=== PATIENT | female | born 1935 | race Hispanic/Latino ===

== ENCOUNTER 2017-02-08 16:49 | Observation (INO) | payer MEDICARE, BC ==
[2017-02-08 16:53] VITALS: BMI 30.8
[2017-02-08 17:03] VITALS: TEMP 98.4; O2SAT 95
[2017-02-08] MEDS ORDERED: Levalbuterol 0.63 MG/3 ML Inhal Soln UD IH STA (17:30)
[2017-02-08] MEDS ORDERED: guaiFENesin 200 mg/10 ml Syrup UD PO STA (17:31)
--- NOTE | 2017-02-08 17:34 | ED PDOC ---
Arrival/HPI - General Chief Complaint: Palpitations Time Seen by Provider: 02/08/17 16:50 Historian: Patient - History of Present Illness Narrative History of Present Illness (Text): 02/08/17 17:22 A 81 year old female presents to the emergency department complaining of intermittent chest "flutters" and feeling her pulse at the base of her neck since yesterday. Patient notes since the onset of the symptoms she has been monitoring her blood pressure and earlier today it was 167/102 so she became nervous and shaky. Patient states she has prescription of Xanax at home so she took a half a tablet. Patient reports currently she just feel a irregular pulse in her neck but no chest discomfort/flutter. Patient notes a non productive cough during onset of symptoms but denies any fever, chills, chest pain, abdominal pain, nausea, vomiting or any other complaints at this time. Patient mentions she has had similar symptoms in the past. PMD: Dr. Senior Gas Mask Assembler: Dr. 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) - Hematological/Oncological Hx Blood Disorders: No - Integumentary Hx Dermatological Disorder: No - Musculoskeletal/Rheumatological Hx Musculoskeletal Disorders: Yes Hx Back Pain: Yes Hx Falls: Yes - Gastrointestinal Hx Gastrointestinal Disorders: Yes (DIVERTICULOSIS,RECTAL BLEED, H PYLORI, CONSTIPATION,) Hx Diverticulitis: Yes Hx Gastroesophageal Reflux: Yes - Genitourinary/Gynecological Hx Genitourinary Disorders: No - Psychiatric Hx Psychophysiologic Disorder: No (SMOKED CIGARETTE H/O ,DRINKS OCCASIONALLY) Hx Emotional Abuse: No Hx Physical Abuse: No Hx Substance Use: No - Past Surgical History Past Surgical History: Non-Contributing - Surgical History Other/Comment: cholectomy. partial left kidney removal - Anesthesia Hx Anesthesia: Yes Hx Anesthesia Reactions: No Hx Malignant Hyperthermia: No - Suicidal Assessment Feels Threatened In Home Enviroment: No Family/Social History - Physician Review Nursing Documentation Reviewed: Yes Family/Social History: Unknown Family HX Smoking Status: Former Smoker Hx Alcohol Use: Yes (OCCASIONALLY) Hx Substance Use: No Hx Substance Use Treatment: No Allergies/Home Meds Allergies/Adverse Reactions: Allergies ampicillin Allergy (Verified 02/08/17 16:54) RASH atorvastatin calcium [From Lipitor] Allergy (Verified 02/08/17 16:54) RASH Home Medications: Home Meds Medication Instructions Recorded Confirmed Losartan/Hydrochlorothiazide 1 tab PO DAILY 01/12/16 02/08/17 [Hyzaar 100-25 Tablet] amLODIPine [Norvasc] 10 mg PO DAILY 01/12/16 02/08/17 Cholecalciferol (Vitamin D3) 1 cap PO QWK 02/08/17 02/08/17 [Vitamin D3] Docusate [Colace] 1 cap PO TID 02/08/17 02/08/17 Metoprolol Succinate [Toprol XL] 25 mg PO DAILY 02/08/17 02/08/17 Review of Systems - Physician Review All systems were reviewed & negative as marked: Yes - Review of Systems Constitutional: absent: Fevers Eyes: absent: Vision Changes ENT: Normal Respiratory: Cough. absent: SOB Cardiovascular: Palpitations. absent: Chest Pain, Syncope Gastrointestinal: absent: Abdominal Pain, Nausea, Vomiting Neurological: absent: Headache, Dizziness, Focal Weakness Endocrine: absent: Diaphoresis Physical Exam Vital Signs Reviewed: Yes Vital Signs Temp Pulse Resp BP Pulse Ox 02/08/17 19:16 79 14 144/74 95 02/08/17 16:49 98.4 F 93 H 20 166/77 H 95 Temperature: Afebrile Blood Pressure: Hypertensive Pulse: Regular Respiratory Rate: Normal Appearance: Positive for: Well-Appearing, Non-Toxic, Comfortable Pain Distress: None Mental Status: Positive for: Alert and Oriented X 3 - Systems Exam Head: Present: Atraumatic, Normocephalic Pupils: Present: PERRL Conjunctiva: Present: Normal Mouth: Present: Moist Mucous Membranes Pharnyx: Present: Normal. No: ERYTHEMA, EXUDATE Neck: Present: Normal Range of Motion Respiratory/Chest: Present: Good Air Exchange, Wheezes (very mild wheezing). No : Respiratory Distress, Accessory Muscle Use Cardiovascular: Present: Regular Rate and Rhythm, Normal S1, S2. No: Murmurs Abdomen: Present: Normal Bowel Sounds. No: Tenderness, Distention, Peritoneal Signs Back: Present: Normal Inspection Upper Extremity: Present: Normal Inspection. No: Cyanosis, Edema Lower Extremity: Present: Normal Inspection. No: Edema Neurological: Present: GCS=15, CN II-XII Intact, Speech Normal Skin: Present: Warm, Dry, Normal Color. No: Rashes Psychiatric: Present: Alert, Oriented x 3, Normal Insight, Normal Concentration Medical Decision Making ED Course and Treatment: 02/08/17 17:22 Impression: A 81 year old female with chest palpitations and sensation of irregular heart rate. Differential Diagnosis include but are not limited to: anxiety vs. ACS less likely Plan: -- Chest X-ray -- Labs -- Xanax, Robitussin and Xopenex -- Reassess and disposition Prior Visits: Notes and results from previous visits were reviewed. The patient last presented to the emergency department on 01/12/16 for evaluation of intermittent vague chest and neck discomfort/palpitations. 02/08/17 17:30 EKG: NSR @ 88; borderline LVH by voltage; normal intevals; normal axis; no ST/ T changes - Lab Interpretations I have reviewed the lab results: Yes - Medication Orders Current Medication Orders: Discontinued Medications Alprazolam (Xanax) 0.125 mg PO STAT STA PRN Reason: Protocol Stop: 02/08/17 17:32 Last Admin: 02/08/17 17:46 Dose: 0.125 mg Guaifenesin (Robitussin) 400 mg PO ONCE STA Stop: 02/08/17 17:32 Last Admin: 02/08/17 17:46 Dose: 400 mg Levalbuterol HCl (Xopenex) 0.63 mg IH ONCE STA Stop: 02/08/17 17:31 Last Admin: 02/08/17 17:46 Dose: 0.63 mg ED OBSERVATION Discharge: Yes Date of observation admission: 02/08/17 Time of observation admission: 17:22 - Observation admission statement Patient is being placed in observation because:: chest palpitations - Goals of Observation Goals of observation are:: symptomatic control - Progress Note Progress Note: 02/08/17 19:00 Patient reports no fluttering sensation and is asymptomatic. Repeat lung and heart exams are normal. 02/08/17 21:30 Second set of cardiac enzymes is negative and patient continues to be asymptomatic. As the patient never had any chest pain or shortness of breathing or dizziness with normal ekg and labs, there is no indication for admission. She has been observed in the emergency department and continues to be asymptomatic with negative CE x 2. Ok for d/c to follow up her pmd and product marketing executive, Dr. Graham. - Scribe Statement The provider has reviewed the documentation as recorded by the Anabellibe Sunny Dwyer Provider Scribe Attestation: All medical record entries made by the Scribe were at my direction and personally dictated by me. I have reviewed the chart and agree that the record accurately reflects my personal performance of the history, physical exam, medical decision making, and the department course for this patient. I have also personally directed, reviewed, and agree with the discharge instructions and disposition. Disposition/Present on Arrival - Present on Arrival Any Indicators Present on Arrival: No History of DVT/PE: No History of Uncontrolled Diabetes: No Urinary Catheter: No History of Decub. Ulcer: No History Surgical Site Infection Following: None - Disposition Have Diagnosis and Disposition been Completed?: Yes Diagnosis: Palpitations Disposition: HOME/ ROUTINE Disposition Time: 17:22 Patient Plan: Discharge Patient Problems: Current Active Problems Problem Status Onset Palpitations Acute Condition: GOOD
[2017-02-08 17:49] LABS: ADD MANUAL DIFF? NO
[2017-02-08 17:59] LABS: BASO # 0.05 K/mm3 (0.0-2.0); BASO % 0.6 % (0.0-3.0); EOS # 0.1 (0.0-0.7); EOS % 0.7 % (1.5-5.0); GRAN # 6.14 (1.4-6.5); GRAN % 70.9 % (50.0-68.0); HEMATOCRIT 37.5 % (36.0-48.0); LYMPH # 1.8 (1.2-3.4); LYMPH % 20.8 % (22.0-35.0); MEAN CELL VOLUME 87.4 fL (80.0-105.0); MEAN CORPUSCULAR HEMOGLOBIN 28.7 pg (25.0-35.0); MEAN CORPUSCULAR HGB CONC 32.8 g/dl (31.0-37.0); MEAN PLATELET VOLUME 9.1 fl (7.0-11.0); MONO # 0.6 (0.1-0.6); PLATELET COUNT 316 10^3/uL (120.0-450.0); RED CELL DISTRIBUTION WIDTH 15.9 % (11.5-14.5); WHITE BLOOD COUNT 8.7 10^3/ul (4.5-11.0)
[2017-02-08 18:38] LABS: ALB/GLOB RATIO 1.1 (1.1-1.8); ALKALINE PHOSPHATASE 82 U/L (38-133); ALT/SGPT 34 U/L (7-56); AST/SGOT 22 U/L (15-39); BILIRUBIN,TOTAL 0.8 mg/dL (0.2-1.3); BLOOD UREA NITROGEN 25 mg/dL (7-21); CALCIUM 9.3 mg/dL (8.4-10.5); CARBON DIOXIDE 23 mmol/L (21-33); CHLORIDE 105 mmol/L (98-107); GFR AFRICAN-AMERICAN > 60; GLUCOSE,RANDOM 103 mg/dL (70-110); LIPASE 110 U/L (23-300); MAGNESIUM 2.4 mg/dL (1.7-2.2); POTASSIUM 4.4 mmol/L (3.6-5.0); SODIUM 137 mmol/L (132-148); TOTAL PROTEIN 7.7 g/dL (5.8-8.3)
[2017-02-08 18:50] LABS: TROPONIN I < 0.01 ng/mL
[2017-02-08 19:17] VITALS: BP 144/74; PULSE 79; RESP 14
[2017-02-08 21:24] LABS: TROPONIN I < 0.01 ng/mL
--- NOTE | 2017-02-09 10:30 | RAD ---
HISTORY: fluttering chest sensation COMPARISON: 01/15/2017 FINDINGS: LUNGS: No active pulmonary disease. PLEURA: No significant pleural effusion identified, no pneumothorax apparent. CARDIOVASCULAR: Normal. OSSEOUS STRUCTURES: No significant abnormalities. VISUALIZED UPPER ABDOMEN: Normal. OTHER FINDINGS: None. IMPRESSION: No active disease.
--- NOTE | 2017-02-09 10:52 | CARD ---
APPROVED REPORT EKG Measurement Heart [id number] TX [id number] <Conclusion> Normal sinus rhythm Moderate voltage criteria for LVH, may be normal variant Leftward axis NSSTW changes
== END 2017-02-08 21:35 | disposition home or self-care (01) ==
LOC: ED 16:49 → EROBSV 17:22
PROVIDERS: ADMIT Emergency Medicine; ATTEND Emergency Medicine
DX: R00.2 Palpitations (principal)
CPT/HCPCS: 36415; 71010; 80053; 82550; 83615; 83690; 83735; 83880; 84484; 85025; 93005; 99284; G0378

== ENCOUNTER 2017-09-13 09:10 | Observation (INO) | payer MEDICARE, BC ==
[2017-09-13 09:18] VITALS: BMI 30.2
[2017-09-13 09:54] LABS: BASO # 0.04 K/mm3 (0.0-2.0); BASO % 0.5 % (0.0-3.0); EOS # 0.1 (0.0-0.7); EOS % 0.9 % (1.5-5.0); GRAN # 5.5 (1.4-6.5); GRAN % 67.8 % (50.0-68.0); LYMPH # 1.7 (1.2-3.4); LYMPH % 21.3 % (22.0-35.0); MEAN CELL VOLUME 88.6 fl (80.0-105.0); MEAN CORPUSCULAR HEMOGLOBIN 28.5 pg (25.0-35.0); MEAN CORPUSCULAR HGB CONC 32.1 g/dl (31.0-37.0); MEAN PLATELET VOLUME 9.4 fl (7.0-11.0); MONO # 0.8 (0.1-0.6); MONO % 9.5 % (1.0-6.0); RBC 4.92 10^6/uL (3.5-6.1); RED CELL DISTRIBUTION WIDTH 15.6 % (11.5-14.5); WHITE BLOOD COUNT 8.1 10^3/ul (4.5-11.0)
--- NOTE | 2017-09-13 09:58 | RAD ---
HISTORY: rectal bleeding COMPARISON: 02/08/2017 FINDINGS: LUNGS: No active pulmonary disease. PLEURA: No significant pleural effusion identified, no pneumothorax apparent. CARDIOVASCULAR: Normal. OSSEOUS STRUCTURES: No significant abnormalities. VISUALIZED UPPER ABDOMEN: Normal. OTHER FINDINGS: None. IMPRESSION: No active disease.
[2017-09-13 10:02] LABS: PROTHROMBIN TIME 11.5 SECONDS (9.4-12.5)
[2017-09-13 10:06] LABS: ALBUMIN 4.5 g/dL (3.0-4.8); ALT/SGPT 45 U/L (7-56); AST/SGOT 32 U/L (14-36); BLOOD UREA NITROGEN 32 mg/dL (7-21); CALCIUM 9.7 mg/dL (8.4-10.5); GFR AFRICAN-AMERICAN > 60; GFR NON-AFRICAN AMERICAN 53
--- NOTE | 2017-09-13 10:11 | ED PDOC ---
Arrival/HPI - General Chief Complaint: GI Problem Time Seen by Provider: 09/13/17 09:25 Historian: Patient - History of Present Illness Narrative History of Present Illness (Text): 09/13/17 10:07 82-year-old female with a history of hypertension presents today with concerns for dark stools since last night. Patient states she had 3 episodes of dark soft stools since last night. Patient denies abdominal pain. Denies chest pain or shortness of breath. pt states she has hx of diverticulitis/diverticulosis in the past. pt denies dizziness or weakness. denies n/v/d. pt states she takes colace 3 times daily. denies fever/chills. denies cp or sob. no other complaints. 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) - Renal Hx Renal Disorder: No - Endocrine/Metabolic Hx Endocrine Disorders: No - Hematological/Oncological Hx Blood Disorders: No - Integumentary Hx Dermatological Disorder: No - Musculoskeletal/Rheumatological Hx Musculoskeletal Disorders: Yes Hx Back Pain: Yes Hx Falls: Yes - Gastrointestinal Hx Gastrointestinal Disorders: Yes (DIVERTICULOSIS,RECTAL BLEED, H PYLORI, CONSTIPATION,) Hx Diverticulitis: Yes Hx Gastroesophageal Reflux: Yes - Genitourinary/Gynecological Hx Genitourinary Disorders: No - Psychiatric Hx Psychophysiologic Disorder: No (SMOKED CIGARETTE H/O ,DRINKS OCCASIONALLY) Hx Emotional Abuse: No Hx Physical Abuse: No Hx Substance Use: No - Past Surgical History Past Surgical History: Non-Contributing - Surgical History Other/Comment: cholectomy. partial left kidney removal - Anesthesia Hx Anesthesia: Yes Hx Anesthesia Reactions: No Hx Malignant Hyperthermia: No - Suicidal Assessment Feels Threatened In Home Enviroment: No Family/Social History - Physician Review Nursing Documentation Reviewed: Yes Family/Social History: Unknown Family HX Smoking Status: Former Smoker Hx Alcohol Use: Yes (OCCASIONALLY) Hx Substance Use: No Hx Substance Use Treatment: No Allergies/Home Meds Allergies/Adverse Reactions: Allergies ampicillin Allergy (Verified 09/13/17 09:18) RASH atorvastatin calcium [From Lipitor] Allergy (Verified 09/13/17 09:18) RASH Home Medications: Home Meds Medication Instructions Recorded Confirmed Losartan/Hydrochlorothiazide 1 tab PO DAILY 01/12/16 09/13/17 [Hyzaar 100-25 Tablet] amLODIPine [Norvasc] 10 mg PO DAILY 01/12/16 09/13/17 Cholecalciferol (Vitamin D3) 1 cap PO QWK 02/08/17 09/13/17 [Vitamin D3] Docusate [Colace] 1 cap PO TID 02/08/17 09/13/17 Metoprolol Succinate [Toprol XL] 50 mg PO DAILY 02/08/17 09/13/17 cloNIDine [Catapres] 0.1 mg PO DAILY 09/13/17 09/13/17 Review of Systems - Review of Systems Constitutional: absent: Fatigue, Fevers Respiratory: absent: SOB, Cough Cardiovascular: absent: Chest Pain, Palpitations Gastrointestinal: Hematochezia. absent: Abdominal Pain, Constipation, Diarrhea , Nausea, Vomiting, Hematemesis Genitourinary Female: absent: Dysuria, Frequency, Hematuria Musculoskeletal: absent: Arthralgias, Back Pain, Neck Pain Skin: absent: Rash, Pruritis Neurological: absent: Headache, Dizziness Psychiatric: absent: Anxiety, Depression, Suicidal Ideation Physical Exam Vital Signs Reviewed: Yes Vital Signs Temp Pulse Resp BP Pulse Ox 09/13/17 14:03 97.0 F L 87 16 135/59 L 97 09/13/17 09:13 97.9 F 95 H 18 191/81 H 95 Temperature: Afebrile Blood Pressure: Hypertensive Pulse: Regular Respiratory Rate: Normal Appearance: Positive for: Well-Appearing, Non-Toxic, Comfortable Pain Distress: None Mental Status: Positive for: Alert and Oriented X 3 - Systems Exam Head: Present: Atraumatic Mouth: Present: Moist Mucous Membranes Neck: Present: Normal Range of Motion Respiratory/Chest: Present: Clear to Auscultation, Good Air Exchange. No: Respiratory Distress, Accessory Muscle Use Cardiovascular: Present: Regular Rate and Rhythm, Normal S1, S2. No: Murmurs Abdomen: Present: Normal Bowel Sounds. No: Tenderness, Distention, Peritoneal Signs, Rebound, Guarding Rectal: Present: Occult Blood, Melena, Normal Rectal Tone. No: Rectal Tenderness, Gross Blood, Hemorrhoids, Fissures Back: Present: Normal Inspection. No: CVA Tenderness Upper Extremity: Present: Normal ROM Lower Extremity: Present: Normal ROM. No: Edema Neurological: Present: GCS=15, Speech Normal Skin: Present: Warm, Dry, Normal Color. No: Rashes Psychiatric: Present: Alert, Oriented x 3 Medical Decision Making ED Course and Treatment: 09/13/17 10:12 Patient is nontoxic well appearing with stable vital signs presenting with dark stools since yesterday. no weakness or fatigue. pt with elevated bp; states she didnt take her medication thismorning; she is requesting to take her medications now. CBC wnl CMP bun; 32 cr. 1.0 glucose; 120 PT wnl INR wnl PTT wnl Urinalysis: + leukocytes, + bacteria. CAT scan: FINDINGS: LOWER THORAX: Unremarkable. LIVER: Small hypodense lesion in the inferior posterior right lobe unchanged, probable cyst. GALLBLADDER AND BILE DUCTS: Unremarkable. PANCREAS: Unremarkable. No gross lesion or ductal dilatation. SPLEEN: Unremarkable. 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 KIDNEYS AND URETERS: Unremarkable. No hydronephrosis. No solid mass. VASCULATURE: Unremarkable. No aortic aneurysm. BOWEL: Unremarkable. No obstruction. No gross mural thickening. A suture line is seen in the sigmoid colon. APPENDIX: Unremarkable. Normal appendix. PERITONEUM: Unremarkable. No free fluid. No free air. LYMPH NODES: Unremarkable. No enlarged lymph nodes. BLADDER: Unremarkable. REPRODUCTIVE: Unremarkable. BONES: There is a compression fracture of L2. Age uncertain. This was not present on the previous study OTHER FINDINGS: None. IMPRESSION: No acute intra-abdominal findings Patient reassessment: pt resting comfortably in er; vitals stable. ua with + leukocytes; will start patient on cipro. Discussed all results with patient in depth case discussed with dr. cornejo covering for dr. marshall; will admit observational status to med/surg for GI evaluation and monitor cbc. all aspects of this case were discussed the attending of record. Impression: rectal bleeding, L2 compression fracture [facility] Lab Interpretations Lab Results: 09/13/17 09:40 09/13/17 09:40 Lab Results 09/13/17 11:03: Urine Color Yellow, Urine Appearance Clear, Urine pH 6.0, Ur Specific [place] 1.015, Urine Protein Negative, Urine Glucose (UA) Negative, Urine Ketones Negative, Urine Blood Negative, Urine Nitrate Negative, Urine Bilirubin Negative, Urine Urobilinogen 0.2, Ur Leukocyte Esterase Small H, Urine RBC 0 - 2, Urine WBC 2 - 5, Ur Epithelial Cells 0 - 2, Urine Bacteria Small 09/13/17 09:40: WBC 8.1, RBC 4.92, Hgb 14.0, Hct 43.6, MCV 88.6, MCH 28.5, MCHC 32.1, RDW 15.6 H, Plt Count 322, MPV 9.4, Gran % 67.8, Lymph % (Auto) 21.3 L, [place] % (Auto) 9.5 H, Eos % (Auto) 0.9 L, Baso % (Auto) 0.5, Gran # 5.50, Lymph # 1.7, [place] # 0.8 H, Eos # 0.1, Baso # 0.04 09/13/17 09:40: Blood Type A NEGATIVE, Antibody Screen Negative, BBK History Checked Patient has bt 09/13/17 09:40: Sodium 139, Potassium 3.7, Chloride 104, Carbon Dioxide 23, Anion Gap 16, BUN 32 H, Creatinine 1.0, Est GFR ( Amer) > 60, Est GFR ( Non-Af Amer) 53, Random Glucose 120 H, Calcium 9.7, Total Bilirubin 0.7, AST 32 , ALT 45, Alkaline Phosphatase 92, Lactate Dehydrogenase 487, Total Creatine Kinase 48, Troponin I < 0.01, Total Protein 8.5 H, Albumin 4.5, Globulin 4.1, Albumin/Globulin Ratio 1.1 09/13/17 09:40: PT 11.5, INR 1.00, APTT 34.0 - RAD Interpretation Radiology Orders: 09/13/17 09:27 CHEST PORTABLE [RAD] Stat 09/13/17 11:02 ABDOMEN & PELVIS [ABD & PELVIS PO CONTRAST ONLY] [CT] Stat - Medication Orders Current Medication Orders: Ciprofloxacin (Cipro 400mg/200ml Dsw) 400 mg in 200 mls @ 133.3 mls/hr IVPB STAT STA PRN Reason: Protocol Stop: 09/13/17 17:43 Last Admin: 09/13/17 16:34 Dose: 133.3 mls/hr eMAR Start Stop Document 09/13/17 16:34 SE (Rec: 09/13/17 16:35 SE [id number]) Intravenous Solution Start Date 09/13/17 Start Time 16:35 Disposition/Present on Arrival - Present on Arrival Any Indicators Present on Arrival: No History of DVT/PE: No History of Uncontrolled Diabetes: No Urinary Catheter: No History of Decub. Ulcer: No History Surgical Site Infection Following: None - Disposition Have Diagnosis and Disposition been Completed?: Yes Diagnosis: UTI (lower urinary tract infection), Rectal bleed Disposition: HOSPITALIZED Disposition Time: 16:16 Patient Plan: Observation Patient Problems: Current Active Problems Problem Status Onset UTI (lower urinary tract infection) Acute Rectal bleed Acute Condition: FAIR Forms: [facility] (Lao)
[2017-09-13 10:15] LABS: ALB/GLOB RATIO 1.1 (1.1-1.8)
[2017-09-13 10:18] LABS: TROPONIN I < 0.01 ng/mL
[2017-09-13 11:07] LABS: URINE BILIRUBIN NEGATIVE (NEGATIVE); URINE BLOOD NEGATIVE (NEGATIVE); URINE GLUCOSE (UA) NEGATIVE (NEGATIVE); URINE LEUKOCYTE ESTERASE SMALL Leu/uL (NEGATIVE); URINE NITRATE NEGATIVE (NEGATIVE); URINE PROTEIN NEGATIVE mg/dL (<30 mg/dL); URINE UROBILINOGEN 0.2 E.U./dL (<1 E.U./dL)
[2017-09-13 11:08] LABS: URINE APPEARANCE CLEAR (CLEAR); URINE COLOR YELLOW (YELLOW)
[2017-09-13 11:15] LABS: URINE BACTERIA SMALL (NEG); URINE EPITHELIAL CELLS 0 - 2 /hpf (0-5); URINE RBC 0 - 2 /hpf (0-2)
[2017-09-13] MEDS ORDERED: Iohexol 240 (50 ml) ONE (11:20)
--- NOTE | 2017-09-13 14:10 | CT ---
PROCEDURE: CT Abdomen and Pelvis without intravenous contrast HISTORY: rectal bleeding/ COMPARISON: 08/09/2014 CT TECHNIQUE: Without contrast.. Contrast Dose: Radiation dose: Total exam DLP = 849 mGy-cm. This CT exam was performed using one or more of the following dose reduction techniques: Automated exposure control, adjustment of the mA and/or kV according to patient size, and/or use of iterative reconstruction technique. FINDINGS: LOWER THORAX: Unremarkable. LIVER: Small hypodense lesion in the inferior posterior right lobe unchanged, probable cyst. GALLBLADDER AND BILE DUCTS: Unremarkable. PANCREAS: Unremarkable. No gross lesion or ductal dilatation. SPLEEN: Unremarkable. 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 KIDNEYS AND URETERS: Unremarkable. No hydronephrosis. No solid mass. VASCULATURE: Unremarkable. No aortic aneurysm. BOWEL: Unremarkable. No obstruction. No gross mural thickening. A suture line is seen in the sigmoid colon. APPENDIX: Unremarkable. Normal appendix. PERITONEUM: Unremarkable. No free fluid. No free air. LYMPH NODES: Unremarkable. No enlarged lymph nodes. BLADDER: Unremarkable. REPRODUCTIVE: Unremarkable. BONES: There is a compression fracture of L2. Age uncertain. This was not present on the previous study OTHER FINDINGS: None. IMPRESSION: No acute intra-abdominal findings
[2017-09-13] MEDS ORDERED: Ciprofloxacin 400mg/200ml D5W 400 MG/200 ML BAG IVPB STA (16:13)
--- NOTE | 2017-09-13 20:42 | CARD ---
APPROVED REPORT EKG Measurement Heart [id number] CO 148P16 [id number] <Conclusion> Normal sinus rhythm Left ventricular hypertrophy with repolarization abnormality Abnormal ECG
[2017-09-14] MEDS ORDERED: Sodium Chloride 0.9% 1,000 ML IV STA (00:01)
[2017-09-14 08:04] LABS: IRON 50 ug/dL (45-180)
[2017-09-14 08:09] LABS: BASO # 0.05 K/mm3 (0.0-2.0); BASO % 0.7 % (0.0-3.0); EOS # 0.2 (0.0-0.7); EOS % 2.3 % (1.5-5.0); GRAN # 4.4 (1.4-6.5); GRAN % 60.2 % (50.0-68.0); HEMOGLOBIN 12.7 g/dL (12.0-16.0); LYMPH % 26.8 % (22.0-35.0); MEAN CORPUSCULAR HEMOGLOBIN 28.6 pg (25.0-35.0); MEAN CORPUSCULAR HGB CONC 32.2 g/dl (31.0-37.0); MEAN PLATELET VOLUME 9.6 fl (7.0-11.0); MONO # 0.7 (0.1-0.6); RBC 4.44 10^6/uL (3.5-6.1); RED CELL DISTRIBUTION WIDTH 15.3 % (11.5-14.5); WHITE BLOOD COUNT 7.3 10^3/ul (4.5-11.0)
[2017-09-14 08:14] LABS: % IRON SATURATION 17 % (20-55); TOTAL IRON BINDING CAPACITY 298 ug/dL (265-497)
[2017-09-14 08:17] LABS: BLOOD UREA NITROGEN 21 mg/dL (7-21); GFR AFRICAN-AMERICAN > 60; GFR NON-AFRICAN AMERICAN > 60
--- NOTE | 2017-09-14 08:56 | HP ---
HISTORY OF PRESENT ILLNESS: Ms. Merrill is an 82-year-old female presented to the ED with three episodes of dark colored stools since last night. Denies any abdominal pain. No shortness of breath. No chest pain. No nausea. No vomiting. CAT scan of the abdomen was unremarkable. Hemoglobin and hematocrit has been stable. PAST MEDICAL HISTORY: Hypertension, chronic back pain, history of rectal bleed, diverticulosis, diverticulitis. PAST SURGICAL HISTORY: Cholecystectomy, left kidney removal. PERSONAL HISTORY: Former smoker. No history of alcohol abuse. FAMILY HISTORY: Noncontributory. SOCIAL HISTORY: Lives at home. ALLERGIES: AMPICILLIN AND ATORVASTATIN. HOME MEDICATIONS: Amlodipine 10 mg daily, Hyzaar 100/25 daily, metoprolol 50 daily, clonidine 0.1 mg daily and Colace one capsule t.i.d. REVIEW OF SYSTEMS: As per HPI. Rest of 12-point review of systems reviewed and negative. PHYSICAL EXAMINATION GENERAL: Comfortable in bed in no acute distress. VITAL SIGNS: Temperature 97.8, heart rate is 91 per minute, respiratory rate 18 per minute, blood pressure 190/81 and pulse oximetry is 95% on room air. HEENT: Normal. NECK: No lymphadenopathy. CHEST: Air entry present equal and bilateral. No added sounds. CARDIOVASCULAR: S1 and S2 normal. No murmur, no gallop. ABDOMEN: Soft and nontender. No hepatosplenomegaly. EXTREMITIES: No edema. CAT scan unremarkable. Compression fracture of L2 . LABORATORY DATA: White count 8.1, hemoglobin 14, hematocrit 43.1 and platelet count 322. Sodium 139, potassium 3.9, BUN 32, creatinine 1 and glucose 130. UA had leukocyte esterase trace. ASSESSMENT: 1. Gastrointestinal bleed. 2. Hypertension. 3. Possible urinary tract infection. PLAN: She will be admitted to the hospital. We will monitor hemoglobin, hematocrit closely. GI consultation Dr. Solano requested. We will continue antihypertensive. Continue clonidine, metoprolol and Hyzaar. Protonix 40 mg IV daily. Liquid diet. IV fluid at 60 mL an hour. Ella Brown MD
[2017-09-14] MEDS: Metoprolol Succinate 50 mg XL Tab PO SCH (10:43)
[2017-09-14 12:41] LABS: FERRITIN 18.9 ng/mL
--- NOTE | 2017-09-14 15:17 | CP.PCM.CON ---
History of Present Illness - History of Present Illness History of Present Illness: This an 82-year-old female with a past medical history of hypertension, diverticulosis/diverticulitis status post colectomy, rheumatoid arthritis came to the emergency room with complaints of dark-colored stool. Patient reports that this started on Thursday night, patient recalls having went out to dinner that night and around 11 PM had a formed bowel movement, initially the stool was brown but later on had another bowel movement and noted black stool. The patient denies nausea, vomiting, or abdominal pain. When she woke up next morning around 6 AM she had another small bowel movement and noted it to be dark stool once again and so came to the emergency room for further evaluation. the patient denies any previous episodes of dark stools or bright red blood per rectum. No complaints of weight loss, loss of appetite, shortness of breath chest pain or dizziness. The patient reports taking Colace daily. She does experience occasional acid reflux and takes Tums when necessary but denies any use of Pepto-Bismol, denies any use of NSAIDs. 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 [facility] jael for full report. The patient's last endoscopy was many years ago and does not recall any acute findings. Her last colonoscopy was 11/2014 found to have diverticulosis, surgical anastomosis on the left colon at 15 cm was noted she had a hyperplastic polyp, and internal hemorrhoids. Past medical history: Diverticulosis/chronic diverticulitis status post colectomy, hypertension, colon polyps, dyslipidemia, osteoarthritis, as rheumatoid arthritis Surgical history: Left partial nephrectomy, partial colectomy Allergies: Ampicillin Family history: Father CHF mother CVA Social history: Former smoker, denies EtOH or drug use Medications: Reviewed as per OCT ROS: Systems reviewed and positive findings see HPI Past Patient History - Infectious Disease Hx of Infectious Diseases: None - Tetanus Immunizations Tetanus Immunization: Unknown - Past Social History Smoking Status: Never Smoked - CARDIAC Hx Cardiac Disorders: Yes Hx Hypertension: Yes - PULMONARY Hx Respiratory Disorders: No - NEUROLOGICAL Hx Neurological Disorder: No - HEENT Hx HEENT Problems: Yes Hx Cataracts: Yes (L-HAVING EYE INJECTIONS) 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) - RENAL Hx Chronic Kidney Disease: No - ENDOCRINE/METABOLIC Hx Endocrine Disorders: No - HEMATOLOGICAL/ONCOLOGICAL Hx Blood Disorders: No - INTEGUMENTARY Hx Dermatological Problems: No - MUSCULOSKELETAL/RHEUMATOLOGICAL Hx Musculoskeletal Disorders: Yes Hx Back Pain: Yes Hx Falls: Yes - GASTROINTESTINAL Hx Gastrointestinal Disorders: Yes (DIVERTICULOSIS,RECTAL BLEED, H PYLORI, CONSTIPATION,) Hx Diverticulitis: Yes Hx Gastroesophageal Reflux: Yes - GENITOURINARY/GYNECOLOGICAL Hx Genitourinary Disorders: No - PSYCHIATRIC Hx Psychophysiologic Disorder: No (SMOKED CIGARETTE H/O ,DRINKS OCCASIONALLY) Hx Emotional Abuse: No Hx Physical Abuse: No - SURGICAL HISTORY Other/Comment: cholectomy. partial left kidney removal - ANESTHESIA Hx Anesthesia: Yes Hx Anesthesia Reactions: No Hx Malignant Hyperthermia: No Meds Allergies/Adverse Reactions: Allergies Allergy/AdvReac Type Severity Reaction Status Date / Time ampicillin Allergy RASH Verified 09/13/17 09:18 atorvastatin calcium Allergy RASH Verified 09/13/17 09:18 [From Lipitor] - Medications Medications: Current Medications Amlodipine Besylate (Norvasc) 10 mg PO DAILY [facility] Last Admin: 09/14/17 10:45 Dose: 10 mg Clonidine HCl (Catapres) 0.1 mg PO DAILY [facility] Last Admin: 09/14/17 10:43 Dose: 0.1 mg Hydrochlorothiazide (Hydrodiuril) 25 mg PO DAILY [facility] Last Admin: 09/14/17 10:43 Dose: 25 mg Sodium Chloride (Sodium Chloride 0.9%) 1,000 mls @ 60 mls/hr IV .[id number] STA Stop: 09/14/17 16:40 Last Admin: 09/14/17 02:09 Dose: 60 mls/hr Losartan Potassium (Cozaar) 100 mg PO DAILY [facility] Last Admin: 09/14/17 10:43 Dose: 100 mg Metoprolol Succinate (Toprol Xl) 50 mg PO DAILY [facility] Last Admin: 09/14/17 10:43 Dose: 50 mg Pantoprazole Sodium (Protonix Inj) 40 mg IVP DAILY [facility] Last Admin: 09/14/17 10:45 Dose: 40 mg Physical Exam - Constitutional Appears: No Acute Distress - Head Exam Head Exam: NORMOCEPHALIC - Eye Exam Eye Exam: Normal appearance. absent: Scleral icterus - ENT Exam ENT Exam: Mucous Membranes Moist - Neck Exam Neck exam: Positive for: Normal Inspection - Respiratory Exam Respiratory Exam: Clear to Auscultation Bilateral, NORMAL BREATHING PATTERN. absent: Respiratory Distress - Cardiovascular Exam Cardiovascular Exam: +S1, +S2 - GI/Abdominal Exam GI & Abdominal Exam: Normal Bowel Sounds, Soft. absent: Guarding, Rebound, Tenderness - Extremities Exam Extremities exam: Positive for: pedal pulses present. Negative for: calf tenderness, pedal edema - Neurological Exam Neurological exam: Alert, Oriented x3 - Skin Skin Exam: Dry, Warm Results - Vital Signs Recent Vital Signs: Last Vital Signs Temp 98.0 F 09/14/17 08:00 Pulse 72 09/14/17 08:00 Resp 20 09/14/17 08:00 BP 178/82 H 09/14/17 10:45 Pulse Ox 95 09/14/17 08:00 - Labs Result Diagrams: 09/14/17 07:20 09/14/17 07:20 Labs: Laboratory Results - last 24 hr 09/14/17 09/14/17 09/14/17 07:20 07:20 07:20 WBC 7.3 RBC 4.44 Hgb 12.7 Hct 39.5 MCV 89.0 MCH 28.6 MCHC 32.2 RDW 15.3 H Plt Count 307 MPV 9.6 Gran % 60.2 Lymph % (Auto) 26.8 [place] % (Auto) 10.0 H Eos % (Auto) 2.3 Baso % (Auto) 0.7 Gran # 4.40 Lymph # 2.0 [place] # 0.7 H Eos # 0.2 Baso # 0.05 Sodium 137 Potassium 4.0 Chloride 105 Carbon Dioxide 25 Anion Gap 12 BUN 21 Creatinine 0.8 Est GFR ( Amer) > 60 Est GFR (Non-Af Amer) > 60 Random Glucose 91 Calcium 9.0 Iron 50 TIBC 298 % Saturation 17 L Ferritin 18.9 Assessment & Plan - Assessment and Plan (Free Text) Assessment: Assessment: GI bleed, rule out angiodysplasia, peptic ulcer disease History of diverticulosis/chronic diverticulitis status post colectomy Hypertension Osteoarthritis History of left partial nephrectomy Plan: Trend H&H Continue PPI clear liquids diet EGD 1/16/18 NPO 12 midnight except meds Thank you for this consult and for allowing us to participate in your patient's care, further recommendations based upon clinical course. Seen and discussed with Dr. Mccain who is covering Dr. Solano.
--- NOTE | 2017-09-14 21:30 | PN ---
DATE: SUBJECTIVE: Patient has no complaints. No chest pain, no shortness of breath. No headaches or dizziness. PHYSICAL EXAMINATION VITAL SIGNS: Temperature is 97.7, pulse is 58, blood pressure is 180/84, respirations 18, O2 saturation is 95%. GENERAL: The patient is lying in bed, flat, comfortable. HEENT: No oral lesion. Anicteric sclerae. Moist mucosa. NECK: No JVD, adenopathy, or thyromegaly. CARDIOVASCULAR: S1 and S2, regular. No murmurs, rubs, or gallops. LUNGS: Clear to auscultation bilaterally. No wheeze, rales, or rhonchi. ABDOMEN: Bowel sounds are positive, soft, nontender and nondistended. EXTREMITIES: No cyanosis, clubbing or edema. ASSESSMENT: 1. Gastrointestinal bleed. 2. Hypertension. PLAN: Patient is currently comfortable. Patient's hemoglobin did decrease from 14 to 12.7. Patient is being followed by gastroenterology. Patient is willing for an endoscopy tomorrow. She will continue her metoprolol. She is on Norvasc for hypertension as well as hydrochlorothiazide. I did speak to the patient's . Toni Anders MD
--- NOTE | 2017-09-15 01:50 | CON ---
DATE: 09/14/2017 LOCATION: The patient is in room 573, bed 2. CHIEF COMPLAINT: Weakness since several days. HISTORY OF PRESENT ILLNESS: This is an 82-year-old female with a history of hypertension and coronary artery disease. She was admitted through the Emergency Room with a lower GI bleed. The patient with a history of nephrolithiasis, arthritis, renal cell carcinoma and diverticulitis with a partial left kidney removal, history of colon polyps removal. She is allergic to ampicillin and has received ceftriaxone in the past with no complications. The patient admitted to [facility] with dark colored stools, but no abdominal pain, no shortness of breath, chest pain or vomiting and the patient denies any nausea or vomiting at this time. PAST MEDICAL HISTORY: Significant for diverticulitis, hypertension, coronary artery disease, nephrolithiasis, arthritis, renal cell cancer, colonic polyps. PAST SURGICAL HISTORY: Significant for partial left kidney removal, colon polyp removal. ALLERGIES: PATIENT IS ALLERGIC TO AMPICILLIN AND LIPITOR, ALTHOUGH SHE HAS TOLERATED CEFTRIAXONE IN THE PAST. MEDICATIONS AT HOME: Noted. PHYSICAL EXAMINATION: GENERAL/VITAL SIGNS: Patient is in bed with a temperature of 98, blood pressure is 130/60, respiratory rate of 19, heart rate of 95. HEENT: Unremarkable. NECK: Supple. LUNGS: Decreased breath sounds. HEART: Normal S1 and S2. ABDOMEN: Soft and nontender. LABORATORY EXAMINATION: Reveals white count of 8, hemoglobin of 14, platelets of 322 and coagulation is noted. Chemistries reveals a BUN of 32, creatinine of 1.0, glucose 120. Urinalysis is unremarkable with 2 to 5 wbc's. Urine cultures, no growth. The patient had a chest x-ray, no active lung disease. CT scan of the abdomen and pelvis was negative. ASSESSMENT AND PLAN: This is an 82 year old with hypertension, diverticulitis, status post colectomy and history of rheumatoid arthritis, dark colored stool with gastrointestinal bleed with negative urinalysis, no evidence of infection with a negative CT scan of the abdomen, negative chest x-ray, negative urinalysis. We will hold off any antibiotics at this time. We will follow with you. Kem Steiner MD [facility] # [id number]
--- NOTE | 2017-09-15 01:57 | CON ---
DATE: ADDENDUM I have personally examined this patient and reviewed all her laboratory results including CT scan of the abdomen. Patient comes into the hospital with melena and suspected GI bleed. She is hemodynamically stable. Her blood count is stable. Agree with Lyly Ta diagnosis and plan. We will plan for an upper endoscopy in the morning. Shlomo Mccain MD
[2017-09-15 07:35] LABS: HEMOGLOBIN 12.5 g/dL (12.0-16.0); MEAN CELL VOLUME 88.9 fl (80.0-105.0); MEAN CORPUSCULAR HEMOGLOBIN 28.3 pg (25.0-35.0); MEAN CORPUSCULAR HGB CONC 31.9 g/dl (31.0-37.0); MEAN PLATELET VOLUME 8.8 fl (7.0-11.0); RBC 4.41 10^6/uL (3.5-6.1); WHITE BLOOD COUNT 6.7 10^3/ul (4.5-11.0)
[2017-09-15] MEDS: Metoprolol Succinate 50 mg XL Tab PO SCH (10:07)
[2017-09-15] MEDS ORDERED: Lidocaine 1% Inj (20ml) ONE (12:18)
[2017-09-15] MEDS ORDERED: Propofol 10 mg/ml Inj (20 ML) ONE (12:18)
[2017-09-15] MEDS ORDERED: Sodium Chloride 0.9% 1,000 ML IV SCH (12:45)
[2017-09-15 12:57] VITALS: TEMP 98.3; O2SAT 98
[2017-09-15 12:58] VITALS: RESP 18
[2017-09-15 13:06] VITALS: BP 140/55; PULSE 62
--- NOTE | 2017-09-16 02:16 | DS ---
HISTORY OF PRESENT ILLNESS: The patient is an 82-year-old female who had come to the hospital with GI bleed. The patient was seen by Dr. Mccain. She is scheduled for endoscopy today. She says she feels well. Her hemoglobin is stable at 12.5 this morning. She otherwise feels well. She has mild iron deficiency. She has no complaints of any headaches or dizziness. PHYSICAL EXAMINATION: VITAL SIGNS: Temperature is 97.7, pulse is 68, blood pressure is 180/84, and respirations are 18. GENERAL: The patient is lying in bed, flat, comfortable. HEENT: No oral lesion. Anicteric sclerae. Moist mucosa. NECK: No JVD, adenopathy, or thyromegaly. CARDIOVASCULAR: S1 and S2, regular. No murmurs, rubs, or gallops. LUNGS: Clear to auscultation bilaterally. No wheeze, rales, or rhonchi. ABDOMEN: Bowel sounds are positive, soft, nontender and nondistended. EXTREMITIES: No cyanosis, clubbing or edema. ASSESSMENT: 1. Anemia secondary to gastrointestinal bleed. 2. Hypertension. PLAN: The patient's hemoglobin is fairly stable. Her hemoglobin did decrease from 14 to 12.5, which is 1.5 g decrease. She is on amlodipine for her hypertension. She is on hydrochlorothiazide. She will also continue her losartan. She is n.p.o. for procedure. Condition is stable. Activity increase as tolerated. The patient's endoscopy did not show any acute abnormality and the patient will most likely be discharged home. Toni Anders MD
--- NOTE | 2017-09-16 08:37 | PN ---
DATE: 09/15/2017 SUBJECTIVE: The patient is in bed, in no acute distress. The patient was seen early this morning in 573, bed 2. No fever and chills. PHYSICAL EXAMINATION VITAL SIGNS: Temperature is 98, blood pressure is 140/50 and respiratory rate of 16. HEENT: Unremarkable. NECK: Supple. LUNGS: Have decreased breath sounds. HEART: Normal S1 and S2. ABDOMEN: Soft and nontender. LABORATORY DATA: Reveals a white count of 6.7, hemoglobin of 12 and platelets of 274. Chemistry reveals a BUN of 21 and creatinine of 0.8. Urinalysis is noted. Microbiology revealed no growth and urine culture and the patient was scheduled for endoscopy today. ASSESSMENT AND PLAN: This is an 82-year-old female seen earlier today in room 573, bed 2. Awake and alert, doing well with history of hypertension, diverticulitis, status post , history of rheumatoid arthritis, dark colored stool and gastrointestinal bleeding, negative urinalysis, no evidence of infection. On CAT scan, negative chest x-ray. No antibiotics indicated. The patient to followup as an outpatient. Kem Steiner MD
== END 2017-09-15 18:18 | disposition home or self-care (01) ==
LOC: ED 09:10 → ERH 16:57 → 5RSO 09-14 02:33
PROVIDERS: ADMIT Internal Medicine Nephrology; ATTEND Internal Medicine Nephrology
DX: K92.2 Gastrointestinal hemorrhage, unspecified (principal); D50.0 Iron deficiency anemia secondary to blood loss (chronic); E27.9 Disorder of adrenal gland, unspecified; E78.5 Hyperlipidemia, unspecified; H35.30 Unspecified macular degeneration; I10 Essential (primary) hypertension; I25.10 Atherosclerotic heart disease of native coronary artery without angina pectoris; K21.9 Gastro-esophageal reflux disease without esophagitis; K57.92 Diverticulitis of intestine, part unspecified, without perforation or abscess without bleeding; K76.89 Other specified diseases of liver; M06.9 Rheumatoid arthritis, unspecified; M19.90 Unspecified osteoarthritis, unspecified site; M48.56XA Collapsed vertebra, not elsewhere classified, lumbar region, initial encounter for fracture; N39.0 Urinary tract infection, site not specified; Z79.899 Other long term (current) drug therapy; Z82.3 Family history of stroke; Z82.49 Family history of ischemic heart disease and other diseases of the circulatory system; Z85.528 Personal history of other malignant neoplasm of kidney; Z86.010 Personal history of colon polyps; Z87.442 Personal history of urinary calculi; Z87.891 Personal history of nicotine dependence; Z88.0 Allergy status to penicillin; Z90.49 Acquired absence of other specified parts of digestive tract; Z90.5 Acquired absence of kidney; Z88.8 Allergy status to other drugs, medicaments and biological substances; K44.9 Diaphragmatic hernia without obstruction or gangrene; K25.9 Gastric ulcer, unspecified as acute or chronic, without hemorrhage or perforation; K26.9 Duodenal ulcer, unspecified as acute or chronic, without hemorrhage or perforation; K31.9 Disease of stomach and duodenum, unspecified
CPT/HCPCS: 36415; 43239; 71045; 74176; 80048; 80053; 81001; 82550; 82728; 83540; 83550; 83615; 84484; 85025; 85027; 85610; 85730; 86850; 86900; 87086; 88305; 88342; 93005; 96374; 96375; 96376; 99285; C9113; G0378; J0744; J2704; J7040; Q9966

== ENCOUNTER 2018-11-20 11:00 | Emergency (ER) | payer MEDICARE, BC ==
[2018-11-20 11:37] VITALS: BMI 26.6
[2018-11-20 11:44] VITALS: RESP 18; TEMP 97.8
--- NOTE | 2018-11-20 12:34 | ED PDOC ---
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 Patient reports she woke up around 4 o clock this morning and saw black stool as she was defecating. Patient mentioned her stool was later brown after defecating later. Patient last presented Aug 2017 with melena. Patient denies any fevers, chills, headache, dizziness, chest pain, shortness of breath, dyspnea on exertion, cough, abdominal pain, nausea, vomiting, diarrhea, back pain, neck pain, or any other complaint. 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) - Renal Hx Renal Disorder: No - Endocrine/Metabolic Hx Endocrine Disorders: No - Hematological/Oncological Hx Blood Transfusions: No Hx Blood Transfusion Reaction: No - Integumentary Hx Dermatological Disorder: No - Musculoskeletal/Rheumatological Hx Musculoskeletal Disorders: Yes Hx Back Pain: Yes Hx Falls: Yes - Gastrointestinal Hx Gastrointestinal Disorders: Yes (DIVERTICULOSIS,RECTAL BLEED, H PYLO RI,CONSTIPATION,) Hx Diverticulitis: Yes Hx Gastroesophageal Reflux: Yes - Genitourinary/Gynecological Hx Genitourinary Disorders: No - Psychiatric Hx Psychophysiologic Disorder: No (SMOKED CIGARETTE H/O ,DRINKS OCCASIONALLY) Hx Emotional Abuse: No Hx Physical Abuse: No Hx Substance Use: No - Past Surgical History Past Surgical History: Non-Contributing - Surgical History Other/Comment: Partial nephrectomy,colectomy - Anesthesia Hx Anesthesia: Yes Hx Anesthesia Reactions: No Hx Malignant Hyperthermia: No - Suicidal Assessment Feels Threatened In Home Enviroment: No Family/Social History - Physician Review Nursing Documentation Reviewed: Yes Family/Social History: No Known Family HX Smoking Status: Never Smoked Hx Alcohol Use: Yes (OCCASIONALLY) Hx Substance Use: No Hx Substance Use Treatment: No Allergies/Home Meds Allergies/Adverse Reactions: Allergies ampicillin Allergy (Verified 11/20/18 12:02) RASH atorvastatin calcium [From Lipitor] Allergy (Verified 11/20/18 12:02) RASH Home Medications: Home Meds Medication Instructions Recorded Confirmed Losartan/Hydrochlorothiazide 1 tab PO DAILY 01/12/16 11/20/18 [Hyzaar 100-25 Tablet] amLODIPine [Norvasc] 10 mg PO DAILY 01/12/16 11/20/18 Cholecalciferol (Vitamin D3) 1 cap PO QWK 02/08/17 11/20/18 [Vitamin D3] Docusate [Colace] 1 cap PO TID 02/08/17 11/20/18 Metoprolol Succinate XL [Toprol XL] 50 mg PO DAILY 02/08/17 11/20/18 cloNIDine [Catapres] 0.1 mg PO TID 09/13/17 11/20/18 Review of Systems - Physician Review All systems were reviewed & negative as marked: Yes - Review of Systems Constitutional: absent: Fatigue, Fevers Eyes: Normal ENT: absent: Sore Throat, Rhinorrhea Respiratory: absent: SOB, Cough Cardiovascular: Normal Gastrointestinal: Stool Changes (black stool). absent: Abdominal Pain Musculoskeletal: Normal Skin: Normal Neurological: absent: Headache, Dizziness Endocrine: Normal Hemo/Lymphatic: Normal Psychiatric: Normal Physical Exam Vital Signs Reviewed: Yes Vital Signs Temp Pulse Resp BP Pulse Ox 11/20/18 11:37 97.8 F 78 18 178/70 H 98 Temperature: Afebrile Blood Pressure: Hypertensive Pulse: Regular Respiratory Rate: Normal Appearance: Positive for: Well-Appearing, Non-Toxic, Comfortable Pain Distress: None Mental Status: Positive for: Alert and Oriented X 3 - Systems Exam Head: Present: Atraumatic, Normocephalic Pupils: Present: PERRL Extroacular Muscles: Present: EOMI Conjunctiva: Present: Normal Mouth: Present: Moist Mucous Membranes Neck: Present: Normal Range of Motion Respiratory/Chest: Present: Clear to Auscultation, Good Air Exchange. No: Respiratory Distress, Accessory Muscle Use Cardiovascular: Present: Regular Rate and Rhythm, Normal S1, S2. No: Murmurs Abdomen: No: Tenderness, Distention, Peritoneal Signs Back: Present: Normal Inspection Upper Extremity: Present: Normal Inspection, Capillary Refill < 2s. No: Cyanosis, Edema Lower Extremity: Present: Normal Inspection, Capillary Refill < 2 s. No: Edema Neurological: Present: GCS=15, Speech Normal Skin: Present: Warm, Dry, Pale. No: Rashes Psychiatric: Present: Alert, Oriented x 3, Normal Insight, Normal Concentration Medical Decision Making ED Course and Treatment: 11/20/18 12:35 Impression: 83 year old F presents to the Emergency Room with complaint of black stool x8hrs ago. Differential Diagnoses Includes But Is Not Limited To: --GI bleeding --Gastric Ulcer --UTI Plan: --Chest X-ray --Labs --Stool Culture --Macrobid --Pepcid --Reassess and disposition Prior Visits: Notes and results from previous visits were reviewed. Patient was last seen in the emergency department on Progress Notes: 11/20/18 13:09 Labs reviewed with no leukocytosis with Hgb noted 12.5. Hemeoccult negative for blood. Patient updated on results and states she will follow up with her PCP and if needed schedule an appointment with her GI specialist. She has no somatic complaints at this time. Opportunity for questions given and answered. Scripts provided. She is stable for discharge. She is stable for discharge. - Lab Interpretations Lab Results: 11/20/18 12:25 11/20/18 12:25 Lab Results 11/20/18 12:25: pO2 97 H, VBG pH 7.40, VBG pCO2 44.0, VBG HCO3 27.3, VBG Total CO2 28.7 H, VBG O2 Sat (Calc) 97.5 H, VBG Base Excess 2.0, VBG Potassium 6.4 H*, Sodium 139.0, Chloride 107.0, Glucose 118 H, Lactate 1.1, FiO2 21.0, Blood Gas Comments Potassium elevated due to hemolyzed specimen, Crit Value Called To Blossom cueva, Crit Value Called By Sis, Blood Gas Notified Time 1300, Venous Blood Potassium 6.4 H* 11/20/18 12:25: Sodium 141, Chloride 105, Potassium 4.3, Carbon Dioxide 26, Anion Gap 15, BUN 27 H, Creatinine 0.7, Est GFR ( Amer) > 60, Est GFR (Non-Af Amer) > 60, Random Glucose 116 H, Calcium 9.8, Total Bilirubin 0.6, AST 36, ALT 8, Alkaline Phosphatase 100, Total Protein 8.5 H, Albumin 3.9, Globulin 4.6, Albumin/Globulin Ratio 0.9 L, Lipase 107 11/20/18 12:25: Urine Color Yellow, Urine Appearance Cloudy, Urine pH 6.0, Ur Specific [place] 1.020, Urine Protein Negative, Urine Glucose (UA) Negative, Urine Ketones Negative, Urine Blood Negative, Urine Nitrate Positive H, Urine Bilirubin Negative, Urine Urobilinogen 0.2, Ur Leukocyte Esterase Small H, Urine RBC 0 - 2, Urine WBC 10 - 15 H, Ur Epithelial Cells 4 - 5, Amorphous Sediment Few, Urine Bacteria Many, Urine Other Uyeast 11/20/18 12:25: PT 12.5, INR 1.11, APTT 39.8 H 11/20/18 12:25: WBC 11.5 H, RBC 4.34, Hgb 12.5, Hct 39.4, MCV 90.8, MCH 28.8, MCHC 31.7, RDW 15.4 H, Plt Count 357, MPV 9.2, Neut % (Auto) 73.6 H, Lymph % (Auto) 18.7 L, [place] % (Auto) 5.6, Eos % (Auto) 1.6, Baso % (Auto) 0.5, Lymph # (Auto) 2.2, [place] # (Auto) 0.6, Eos # (Auto) 0.2, Baso # (Auto) 0.06, Absolute Neuts (auto) 8.48 H I have reviewed the lab results: Yes - RAD Interpretation Narrative RAD Interpretations (Text): 11/20/18 13:41 Chest X-ray: No active pulmonary disease Mild cardiomegaly and pulmonary venous congestion Radiology Orders: 11/20/18 11:58 CHEST PORTABLE [RAD] Stat Mold Finisher: Radiologist - Medication Orders Current Medication Orders: 11/20/18 13:12 Discontinued Medications Famotidine (Pepcid) 20 mg IVP STAT STA Stop: 11/20/18 12:31 Last Admin: 11/20/18 13:00 Dose: 20 mg IVP Administration Document 11/20/18 13:00 EQ (Rec: 11/20/18 13:00 EQ [id number]) Charges for Administration # of IVP Administrations 1 Nitrofurantoin Macrocrystals (Macrobid) 100 mg PO STAT STA; Protocol Stop: 11/20/18 12:52 Last Admin: 11/20/18 13:00 Dose: 100 mg - PA / MEDICAL VAN DRIVER / Resident Statement MD/DO has reviewed & agrees with the documentation as recorded. - Scribe Statement The provider has reviewed the documentation as recorded by the Scribe Emmy Tabor All medical record entries made by the Scribe were at my direction and personally dictated by me. I have reviewed the chart and agree that the record accurately reflects my personal performance of the history, physical exam, medical decision making, and the department course for this patient. I have also personally directed, reviewed, and agree with the discharge instructions and disposition. Disposition/Present on Arrival - Present on Arrival Any Indicators Present on Arrival: No History of DVT/PE: No History of Uncontrolled Diabetes: No Urinary Catheter: No History of Decub. Ulcer: No History Surgical Site Infection Following: None - Disposition Have Diagnosis and Disposition been Completed?: Yes Diagnosis: Dark stools, UTI (urinary tract infection) Disposition: HOME/ ROUTINE Disposition Time: 13:13 Patient Plan: Discharge Patient Problems: Current Active Problems Problem Status Onset Dark stools Acute UTI (urinary tract infection) Acute Condition: STABLE Discharge Instructions (ExitCare): Urinary Tract Infection, Adult (DC) Print Language: TURKMEN Additional Instructions: All medical record entries made by the Scribe were at my direction and personally dictated by me. I have reviewed the chart and agree that the record accurately reflects my personal performance of the history, physical exam, medical decision making, and the department course for this patient. I have also personally directed, reviewed, and agree with the discharge instructions and disposition. Please follow up with your PCP in 1 week Please take your prescription medications as prescribed Prescriptions: Famotidine [Pepcid] 40 mg PO DAILY #10 tablet Nitrofurantoin Monohyd/M-Cryst [Macrobid 100 mg Capsule] 100 mg PO BID 5 Days #10 capsule Referrals: Tobin Senior MD [Family Provider] - Follow up with primary Dannielle Solano MD [Medical Doctor] - Follow up with primary Forms: [employer] ([place] Citizen)
[2018-11-20 12:45] LABS: BASO # 0.06 K/mm3 (0.0-2.0); BASO % 0.5 % (0.0-3.0); EOS # 0.2 (0.0-0.7); EOS % 1.6 % (1.5-5.0); HEMOGLOBIN 12.5 g/dL (12.0-16.0); LYMPH # 2.2 (1.2-3.4); LYMPH % 18.7 % (22.0-35.0); MEAN CELL VOLUME 90.8 fl (80.0-105.0); MEAN CORPUSCULAR HEMOGLOBIN 28.8 pg (25.0-35.0); MEAN CORPUSCULAR HGB CONC 31.7 g/dl (31.0-37.0); MEAN PLATELET VOLUME 9.2 fl (7.0-11.0); MONO # 0.6 (0.1-0.6); MONO % 5.6 % (1.0-6.0); RBC 4.34 10^6/uL (3.5-6.1); RED CELL DISTRIBUTION WIDTH 15.4 % (11.5-14.5); WHITE BLOOD COUNT 11.5 10^3/uL (4.5-11.0)
[2018-11-20 12:46] LABS: URINE APPEARANCE CLOUDY (CLEAR); URINE BILIRUBIN NEGATIVE (NEGATIVE); URINE BLOOD NEGATIVE (NEGATIVE); URINE COLOR YELLOW (YELLOW); URINE GLUCOSE (UA) NEGATIVE (NEGATIVE); URINE LEUKOCYTE ESTERASE SMALL Leu/uL (NEGATIVE); URINE PROTEIN NEGATIVE mg/dL (<30 mg/dL); URINE UROBILINOGEN 0.2 E.U./dL (<1 E.U./dL)
[2018-11-20 12:47] LABS: INR 1.11; PARTIAL THROMBOPLASTIN TIME 39.8 Seconds (26.9-38.3); PROTHROMBIN TIME 12.5 SECONDS (9.4-12.5)
[2018-11-20 12:51] LABS: URINE AMORPHOUS SEDIMENT FEW /hpf; URINE BACTERIA MANY /hpf; URINE RBC 0 - 2 /hpf (0-2)
[2018-11-20 12:56] LABS: ALB/GLOB RATIO 0.9 (1.1-1.8); ALBUMIN 3.9 g/dL (3.0-4.8); ALT/SGPT 8 U/L (7-56); AST/SGOT 36 U/L (14-36); BLOOD UREA NITROGEN 27 mg/dL (7-21); CALCIUM 9.8 mg/dL (8.4-10.5); GFR NON-AFRICAN AMERICAN > 60; LIPASE 107 U/L (23-300)
[2018-11-20 13:09] LABS: VENOUS BLOOD GAS PO2 97 mm/Hg (30-55)
--- NOTE | 2018-11-20 13:22 | RAD ---
Date of service: 11/20/2018 HISTORY: poss GI bleed COMPARISON: No prior. FINDINGS: LUNGS: The lungs are well inflated and clear. There is mild pulmonary venous congestion. No lobar pneumonia. PLEURA: No pleural effusions or pneumothorax. CARDIOVASCULAR: There is mild cardiomegaly. There are aortic atherosclerotic calcifications present. OSSEOUS STRUCTURES: Within normal limits for the patient's age. VISUALIZED UPPER ABDOMEN: Normal. OTHER FINDINGS: None. IMPRESSION: No active pulmonary disease. Mild cardiomegaly and pulmonary venous congestion.
[2018-11-20 13:49] VITALS: BP 144/89; PULSE 80; O2SAT 96
== END 2018-11-20 13:48 | disposition home or self-care (01) ==
LOC: ED 11:00
DX: N39.0 Urinary tract infection, site not specified (principal); R19.5 Other fecal abnormalities; I10 Essential (primary) hypertension; H54.61 Unqualified visual loss, right eye, normal vision left eye

== ENCOUNTER 2018-11-24 13:31 | Outpatient (CLI) | payer MEDICARE, BC | END 2018-11-24 13:32 | disposition home or self-care (01) | LOC: LAB 13:31 ==